=== PATIENT | female | born 1930 | race African-American/Black ===

== ENCOUNTER 2019-06-19 06:33 | Day surgery (SDC) | payer MEDICARE, BC ==
[~2019-06-19] VITALS: Ht 167.6 cm; Wt 92.5 kg
[~2019-06-19 06:33] MED LIST: CYCLOPENTOLATE HCL 1% OPHTH DROPS 2ML RIGHTEYE SCH; LACTATED RINGERS 1,000 ML IV SCH; LEVO500T2 PO; MELOXICAM; METR500T PO; OMEPRAZOLE; PHENYLEPHRINE HCL 10% OPHTH DROPS 5ML RIGHTEYE SCH; SIME80TA15 PO; TROPICAMIDE 1% OPHTH DROPS 15ML RIGHTEYE SCH
[2019-06-19] MEDS ORDERED: BALANCED SALT IRRIG SOLN COMB1 500ML OP ONE ×2 (08:30→09:45)
[2019-06-19] MEDS ORDERED: HYALURONATE SODIUM 14 MG/ML 0.85ML SYRINGE IO ONE (08:35)
[2019-06-19] MEDS ORDERED: MIDAZOLAM HCL 2 MG/2 ML VIAL ONE (09:07)
[2019-06-19] MEDS ORDERED: FENTANYL CITRATE/PF 50MCG/ML 2ML VIAL ONE (09:07)
[2019-06-19] MEDS ORDERED: DIPHENHYDRAMINE 50MG/ML VIAL ONE (09:07)
[2019-06-19 09:25] LABS: BASOPHILS % 0.5 % (0.0-2.0); EOSINOPHILS % 0.5 % (0.0-5.0); HEMATOCRIT. 37.1 % (36.0-48.0); HEMOGLOBIN. 11.7 g/dL (12.0-16.0); LYMPHOCYTES % 24.4 % (20.0-50.0); MEAN CORPUSCULAR HEMOGLOBIN 21.9 pg (28.0-32.0); MEAN CORPUSCULAR VOLUME 69.8 fL (81.0-99.0); MONOCYTES % 8.2 % (2.0-8.0); NEUTROPHILS % 66.4 % (40.0-76.0); PLATELET 264 x1000/uL (130-400); RED BLOOD CELL COUNT 5.32 mill/uL (4.2-5.4); RED CELL DISTRIBUTION WIDTH 17.6 % (11.6-14.6)
[2019-06-19] MEDS ORDERED: HYDRALAZINE 20MG/ML VIAL ONE (09:27)
[2019-06-19] MEDS ORDERED: SODIUM CHLORIDE 0.9% 10ML VIAL ONE (09:27)
[2019-06-19 09:29] LABS: CHLORIDE 109 mEq/L (98-107)
[2019-06-19 09:49] LABS: PLATELET ESTIMATE NORMAL
== END 2019-06-19 11:40 | disposition home or self-care (01) ==
LOC: OR 06:33
PROVIDERS: ATTEND Ophthalmology
DX: H25.11 Age-related nuclear cataract, right eye (principal); H04.123 Dry eye syndrome of bilateral lacrimal glands; H40.1130 Primary open-angle glaucoma, bilateral, stage unspecified; H40.051 Ocular hypertension, right eye; I10 Essential (primary) hypertension; E66.9 Obesity, unspecified; M17.0 Bilateral primary osteoarthritis of knee; K21.9 Gastro-esophageal reflux disease without esophagitis; J44.1 Chronic obstructive pulmonary disease with (acute) exacerbation; Z79.899 Other long term (current) drug therapy; Z98.890 Other specified postprocedural states; Z90.710 Acquired absence of both cervix and uterus; Z82.49 Family history of ischemic heart disease and other diseases of the circulatory system; Z98.1 Arthrodesis status; Z68.32 Body mass index [BMI] 32.0-32.9, adult
CPT/HCPCS: 36415; 66984; 80048; 85025; 93005; J0360; J1200; J2250; J3010; J3490; V2632